=== PATIENT | female | born 1985 | race Caucasian/White ===

== ENCOUNTER 2024-08-09 11:50 | Emergency (ER) | payer MEDICAID ==
[~2024-08-09] VITALS: Ht 162.6 cm; Wt 83.5 kg
[2024-08-09 11:59] VITALS: BP 110/71; PULSE 95; RESP 18; TEMP 96.9; O2SAT 98
[2024-08-09] MEDS ORDERED: DOXYCYCLINE 100MG CAPSULE PO STA (14:23)
== END 2024-08-09 16:31 | disposition left against medical advice (07) ==
LOC: ER 11:50
DX: S30.861A Insect bite (nonvenomous) of abdominal wall, initial encounter (principal); W57.XXXA Bitten or stung by nonvenomous insect and other nonvenomous arthropods, initial encounter; Y93.89 Activity, other specified; Y92.89 Other specified places as the place of occurrence of the external cause; Y99.8 Other external cause status
CPT/HCPCS: 99281; J7030

== ENCOUNTER 2024-08-10 11:49 | Emergency (ER) | payer MEDICAID ==
[~2024-08-10] VITALS: Ht 162.6 cm; Wt 83.5 kg
[2024-08-10 11:55] VITALS: BP 113/63; PULSE 88; RESP 18; O2SAT 100
[2024-08-10 12:14] VITALS: TEMP 97.1
== END 2024-08-10 12:15 | disposition home or self-care (01) ==
LOC: ER 11:51
DX: S30.861A Insect bite (nonvenomous) of abdominal wall, initial encounter (principal); W57.XXXA Bitten or stung by nonvenomous insect and other nonvenomous arthropods, initial encounter; Y93.89 Activity, other specified; Y92.89 Other specified places as the place of occurrence of the external cause; Y99.8 Other external cause status
CPT/HCPCS: 99281